=== PATIENT | male | born 1935 | race Caucasian/White ===

== ENCOUNTER → 2017-07-10 | Outpatient (CLI) | payer MEDICARE, BC ==
[~2017-07-10] MED LIST: ASPIR 8181 MG PO; ATIVAN0.5 MG PO; CENTRUM SILVER1 EAC4 PO; MELATONIN1 MG PO; OMEPRAZOLE 20 M20 M1 PO; PLAVIX 75 MG TA75 M1 PO; PRAVACHOL40 MG PO; SEROQUEL 50 MG50 MG PO
--- NOTE | 2017-07-10 14:51 | 2DMMODE ---
[place] [address] 2 D/M-MODE ECHOCARDIOGRAM Name: GIA STARKS Room: [facility]#: [id number] Admission: 07/10/17 Attend Phys: Bryan Stanley Discharge: Date of : 35 Date of Service: 07/10/17 1450 Report #: [id number] THIS REPORT FOR: //name// APPROVED REPORT Study performed: 07/10/2017 09:59:05 EXAM: Comprehensive 2D, Doppler, and color-flow Echocardiogram Patient Location: Out-Patient Status: routine BSA: 1.84 HR: 68 bpm BP: 115/66 mmHg Other Information Study Quality: Adequate Indications CAD 2D Dimensions IVSd: 10.12 (7-11mm) LVOT Diam: 20.37 (18-24mm) LVDd: 42.85 mm PWd: 9.61 (7-11mm) Ascending Ao: 28.47 (22-36mm) LVDs: 24.78 (25-40mm) Aortic Root: 23.82 mm Volumes Left Atrial Volume (Systole) LA ESV Index: 28.00 mL/m2 Aortic Valve AoV Peak Lex.: 1.69 m/s AO Peak Gr.: 11.46 mmHg LVOT Max P.19 mmHg AO Mean Gr.: 6.17 mmHg LVOT Mean P.00 mmHg LVOT Max V: 0.74 m/s AO V2 VTI: 30.30 cm LVOT Mean V: 0.45 m/s KIERAN (VTI): 1.79 cm2 LVOT V1 VTI: 16.68 cm Mitral Valve E/A Ratio: 0.72 MV Decel. Time: 277.64 ms MV E Max Lex.: 0.53 m/s MV PHT: 80.52 [place] [address] 2 D/M-MODE ECHOCARDIOGRAM Name: GIA STARKS Room: [facility]#: [id number] Admission: 07/10/17 Attend Phys: Bryan Stanley Discharge: Date of : 35 Date of Service: 07/10/17 1450 Report #: [id number] MVA (PHT): 2.73 cm2 TDI E/Lateral E': 6.63 E/Medial E': 7.57 Medial E' Lex.: 0.07 m/s Lateral E' Lex.: 0.08 m/s Pulmonary Valve PV Peak Lex.: 0.92 m/s PV Peak Gr.: 3.39 mmHg Tricuspid Valve TR Peak Gr.: 22.72 mmHg RVSP: 27.72 mmHg Left Ventricle The left ventricle is normal size. There is global hypokinesis of the left ventricle. There is normal left ventricular wall thickness. Left ventricular systolic function is mildly decreased. LVEF is 45-50%. Grade I - abnormal relaxation pattern. Right Ventricle The right ventricle is normal size. The right ventricular systolic function is normal. Atria The left atrium size is normal. The right atrium size is normal. Aortic Valve Aortic valve leaflets are mildly thickened. No aortic regurgitation is present. There is no aortic valvular stenosis. Mitral Valve The mitral valve is normal in structure. Mild mitral regurgitation. No evidence of mitral valve stenosis. Tricuspid Valve The tricuspid valve is normal in structure. Mild tricuspid regurgitation. The RVSP is _35___ mmHg. Pulmonic Valve Pulmonic valve is not well visualized. Mild pulmonic regurgitation. Great Vessels The aortic root is normal in size. IVC is normal in size and collapses with >50% [place] [address] 2 D/M-MODE ECHOCARDIOGRAM Name: GIA STARKS Room: [facility]#: [id number] Admission: 07/10/17 Attend Phys: Bryan Stanley Discharge: Date of : 35 Date of Service: 07/10/17 1450 Report #: [id number] Pericardium There is no pericardial effusion. <Conclusion> LVEF is 45-50%. Aortic valve leaflets are mildly thickened. Mild mitral regurgitation. There is global hypokinesis of the left ventricle. <ELECTRONICALLY SIGNED> By: Jose Sesay MD, FAC 07/10/17 145 145 145 Jose Sesay MD, FAC /INF
== END ==
LOC: M.CRD 09:12
DX: I08.1 Rheumatic disorders of both mitral and tricuspid valves (principal); I25.10 Atherosclerotic heart disease of native coronary artery without angina pectoris; I10 Essential (primary) hypertension

== ENCOUNTER 2017-12-21 17:07 | Inpatient (IN) | payer MEDICARE, BC ==
[~2017-12-21] VITALS: Ht 152.4 cm; Wt 75.7 kg
[2017-12-21 17:13] VITALS: BP 155/78
[2017-12-21] MEDS ORDERED: ASPIR 8181 MG PO (17:24)
[2017-12-21] MEDS ORDERED: ATIVAN0.5 MG PO (17:26)
[2017-12-21] MEDS ORDERED: CENTRUM SILVER1 EAC4 PO (17:26)
[2017-12-21] MEDS ORDERED: MELATONIN1 MG PO (17:26)
[2017-12-21] MEDS ORDERED: PRAVACHOL40 MG PO (17:27)
[2017-12-21] MEDS ORDERED: SEROQUEL 50 MG50 MG PO (17:27)
[2017-12-21] MEDS ORDERED: OMEPRAZOLE 20 M20 M1 PO (17:27)
[2017-12-21 17:31] LABS: ABSOLUTE BASOPHILS 0.1 thou/uL (0.0-0.2); ABSOLUTE LYMPHOCYTES 1.5 thou/uL (0.8-5.3); ABSOLUTE MONOCYTES 0.6 thou/uL (0.0-1.2); ABSOLUTE NEUTROPHILS 4.4 thou/uL (1.6-8.1); BASOPHILS 0.8 %; EOSINOPHILS 0.2 %; HEMATOCRIT 43.6 % (42.0-52.0); HEMOGLOBIN 14.8 gm/dL (14.0-18.0); LYMPHOCYTES 22.3 %; MCV 94.2 fL (80.0-100.0); MONOCYTES 9.3 %; MPV 8.7 fl. (7.2-11.1); NUCLEATED RBCS 0 /100WBC; PLATELET COUNT* 152 thou/uL (150-400); POLYS 67.4 %; RBC 4.63 mil/uL (4.50-6.00); RDW-CV 13.6 % (10.5-14.5); WBC 6.5 thou/uL (4.0-11.0)
[2017-12-21 17:41] LABS: ANION GAP 8 mmol/L (7-16); BUN 11 mg/dL (7-18); CALCIUM 8.2 mg/dL (8.5-10.1); CHLORIDE 102 mmol/L (98-107); CO2 26 mmol/L (21-32); GLUCOSE 114 mg/dL (70-99); POTASSIUM 3.9 mmol/L (3.5-5.1); SODIUM 136 mmol/L (136-145)
[2017-12-21 17:43] LABS: APTT 27.8 Seconds (25.0-31.3); INR 1.1; PROTIME 11.2 Seconds (9.20-11.50)
[2017-12-21 17:57] LABS: ALBUMIN 3.6 g/dL (3.4-5.0); ALKALINE PHOSPHATASE 95 U/L (46-116); CK-MB MASS 0.9 ng/mL (<0.5-3.6); LIPASE 95 U/L (73-393); MAGNESIUM 1.7 mg/dL (1.8-2.4); NT-PRO BRAIN NAT PEPTIDE 1241 pg/mL (<300); SGOT 28 U/L (15-37); SGPT 31 U/L (30-65); TOTAL PROTEIN 6.7 g/dL (6.4-8.2); TROPONIN-I LEVEL <0.06 ng/mL (<0.06)
[2017-12-21 19:00] VITALS: BP 123/62
[2017-12-21 19:06] VITALS: BP 137/75
[2017-12-21 20:00] VITALS: BP 123/62
[2017-12-22] VITALS (10 sets, daily range): BP systolic 105–123; BP diastolic 39–70
[2017-12-22 05:11] LABS: CHOLESTEROL 118 mg/dL (<200); HDL CHOLESTEROL 41 mg/dL (>40); LDL CHOLESTEROL 66 mg/dL (<100); TC:HDL 2.9 Ratio (Not establshd); TRIGLYCERIDE 56 mg/dL (<150); VLDL 11 mg/dL (<40)
[2017-12-22 05:21] LABS: SERUM ASSESSMENT CLEAR
--- NOTE | 2017-12-22 12:56 | EKG ---
[place] [address] ELECTROCARDIOGRAM REPORT Name: GIA STARKS Room: [address] ADM IN .R.#: [id number] Admission: 12/21/17 Attend Phys: Johnson Martins, Discharge: Date of : 35 Report #: [id number] THIS REPORT FOR: //name// [facility] Test Date: 2017-12-21 Test Time: 21:17:47 Pat Name: GIA STARKS Department: Room: [address] Gender: M [employer] Team Member: [facility] : 1935 Requested By: Amrit Cline Order Number: [id number] Reading MD: David Dejesus Measurements Intervals [place] Rate: 95 P: 50 [place]: 170 QRS: 36 QRSD: 103 T: 48 QT: 406 QTc: 511 Interpretive Statements Sinus rhythm Ventricular bigeminy Probable left atrial enlargement No previous ECG available for comparison Electronically Signed On 12-22-2017 12:56:12 CDT by David Dejesus [email or web address] <ELECTRONICALLY SIGNED> By: David Dejesus MD, [facility] 12/22/17 1256 16 16 David Dejesus MD, FAC /EPI
--- NOTE | 2017-12-22 12:56 | EKG ---
[place] [address] ELECTROCARDIOGRAM REPORT Name: GIA STARKS Room: [address] IN .R.#: [id number] Admission: 12/21/17 Attend Phys: Johnson Martins, Discharge: Date of : 35 Report #: [id number] THIS REPORT FOR: //name// [facility] ED Test Date: 2017-12-21 Test Time: 17:13:10 Pat Name: GIA STARKS Department: Room: [facility] Gender: M [employer]: Сергей MARY : 1935 Requested By: Amrit Cline Order Number: [id number] MD: David Dejesus Measurements Intervals [place] Rate: 90 P: 0 [place]: 135 QRS: 57 QRSD: 95 T: 68 QT: 396 QTc: 485 Interpretive Statements Sinus rhythm Ventricular bigeminy Borderline low voltage, extremity leads No previous ECG available for comparison Electronically Signed On 12-22-2017 12:56:05 CDT by David Dejesus [email or web address] <ELECTRONICALLY SIGNED> By: David Dejesus MD, [facility] 12/22/17 1256 171 12 David Dejesus MD, [facility] /EPI
[2017-12-23] VITALS (7 sets, daily range): BP systolic 91–122; BP diastolic 47–72
[2017-12-24] VITALS: BP 112/74
[2017-12-24 04:00] VITALS: BP 134/77
[2017-12-24 08:00] VITALS: BP 113/52; BP 122/60
[2017-12-24 08:12] VITALS: BP 122/60
[2017-12-24 10:08] VITALS: BP 122/60
[2017-12-24] MEDS ORDERED: PLAVIX 75 MG TA75 M1 PO (10:11)
--- NOTE | 2017-12-24 10:36 | 2DMMODE ---
[place] [address] 2 D/M-MODE ECHOCARDIOGRAM Name: GIA STARKS Room: [address] IN [facility]#: [id number] Admission: 12/21/17 Attend Phys: Johnson Bradshaw Discharge: Date of : 35 Date of Service: 12/23/17 1359 Report #: [id number] THIS REPORT FOR: //name// APPROVED REPORT Study performed: 12/23/2017 11:33:45 EXAM: Comprehensive 2D, Doppler, and color-flow Echocardiogram Patient Location: In-Patient Room #: [facility] Status: routine BSA: 1.88 HR: 52 bpm BP: 115/72 mmHg Rhythm: NSR Other Information Study Quality: Good Indications CVA/TIA Chest Pain Echo Enhancing Agent Indication: Rule out Shunt Agent(s) / Amount(s) Used: Agitated Saline 10 cc 2D Dimensions IVSd: 10.20 (7-11mm) LVOT Diam: 22.07 (18-24mm) LVDd: 44.24 mm PWd: 9.57 (7-11mm) Ascending Ao: 33.06 (22-36mm) LVDs: 30.69 (25-40mm) Aortic Root: 33.00 mm Volumes Left Atrial Volume (Systole) LA ESV Index: 30.20 mL/m2 Aortic Valve AoV Peak Lex.: 1.63 m/s AO Peak Gr.: 10.65 mmHg LVOT Max P.21 mmHg AO Mean Gr.: 6.44 mmHg LVOT Mean P.43 mmHg LVOT Max V: 0.90 m/s AO V2 VTI: 32.58 cm LVOT Mean V: 0.54 m/s KIERAN (VTI): 2.08 cm2 LVOT V1 VTI: 17.72 [place] [address] 2 D/M-MODE ECHOCARDIOGRAM Name: GIA STARKS Room: [address]#: [id number] Admission: 12/21/17 Attend Phys: Johnson Bradshaw Discharge: Date of : 35 Date of Service: 12/23/17 1359 Report #: [id number] Mitral Valve E/A Ratio: 0.58 MV Decel. Time: 205.12 ms MV E Max Lex.: 0.44 m/s MV PHT: 59.49 ms MVA (PHT): 3.70 cm2 TDI E/Lateral E': 3.14 E/Medial E': 4.00 Medial E' Lex.: 0.11 m/s Lateral E' Lex.: 0.14 m/s Pulmonary Valve PV Peak Lex.: 1.12 m/s PV Peak Gr.: 4.98 mmHg Tricuspid Valve RAP Estimate: 5.00 mmHg TR Peak Gr.: 23.03 mmHg RVSP: 28.00 mmHg PA Pressure: 28.00 mmHg Left Ventricle The left ventricle is normal size. severe hypokinesis of the apex There is normal left ventricular wall thickness. Left ventricular systolic function is mildly decreased. LVEF is 45-50%. Grade I - abnormal relaxation pattern. Right Ventricle The right ventricle is normal size. The right ventricular systolic function is normal. Atria Left atrium is mildly dilated. evidence of a small right to left interatrial shunt Right atrium is dilated. Aortic Valve Mild aortic valve sclerosis. No aortic regurgitation is present. There is no aortic valvular stenosis. Mitral Valve The mitral valve is normal in structure. Trace mitral regurgitation. No evidence of mitral valve stenosis. Tricuspid Valve The tricuspid valve is normal in structure. Mild tricuspid regurgitation. [place] [address] 2 D/M-MODE ECHOCARDIOGRAM Name: GIA STARKS Room: [address]#: [id number] Admission: 12/21/17 Attend Phys: Johnson Bradshaw Discharge: Date of : 35 Date of Service: 12/23/17 1359 Report #: [id number] Pulmonic Valve Pulmonic valve is not well visualized. Mild pulmonic regurgitation. Great Vessels The aortic root is normal in size. IVC is normal in size and collapses >50% with inspiration. Pericardium There is no pericardial effusion. <Conclusion> LVEF is 45-50%. Right atrium is dilated. evidence of a small right to left interatrial shunt severe hypokinesis of the apex Left atrium is mildly dilated. <ELECTRONICALLY SIGNED> By: Jose Sesay MD, [facility] 12/23/17 1359 1359 1359 Jose Sesay MD, FACC /INF
[2017-12-24 12:58] VITALS: BP 113/52
--- NOTE | 2018-01-04 12:28 | CON ---
[address] [address] CONSULTATION Name: GIA STARKS Room: [address] IN .R.#: [id number] Admission: 12/21/17 Attend Phys: Johnson Martins, Discharge: 12/24/17 Date of : 35 Report #: [id number] THIS REPORT FOR: //name// CC: [facility] physician/PCP Johnson Martins PRIMARY SOFTWARE BUSINESS ANALYST: Dr. Sly Ko. PRIMARY CARE PHYSICIAN: Dr. Jose Perez. REASON FOR CONSULTATION: Chest pain. HISTORY OF PRESENT ILLNESS: The patient is an 82-year-old man who presented to the Emergency Department with left-sided chest discomfort, but he also started to get numbness and weakness in his right arm, and ultimately underwent a CVA workup and was diagnosed with an acute CVA of the right posterior circulation. This morning, his speech is normal. He is alert and oriented. He is complaining a right arm is heavy, his hands are weak bilaterally and his left leg is having an itchy sensation or loss in sensation. His chest discomfort is central and left-sided. It was occurring at rest. It did not radiate. It was not associated with shortness of breath, diaphoresis, but he did not take aspirin or nitroglycerin, but is supposedly taking aspirin daily. He presents in a sinus rhythm with frequent PVCs and overnight on telemetry has remained in a sinus rhythm. PAST MEDICAL HISTORY: His cardiovascular past medical history is significant for the following: He had initial stent and PCI in the early 1999s and then mid 1999s. In approximately 2003 and 2004, he underwent multivessel coronary artery bypass surgery at [facility]. His most recent MPI was in 2016, which revealed a fixed anterior defect. He has a history of low normal ejection fraction in the 45-50% range. He has hypertension and hyperlipidemia. He is not diabetic. He has no prior history of CVA or TIA. He has no history of atrial fibrillation. HOME MEDICATIONS: Include baby aspirin, melatonin, lorazepam, omeprazole 20 mg daily, pravastatin 40 mg daily, and quetiapine 50 mg daily. ALLERGIES: He has no known drug allergies. SOCIAL HISTORY: He is a nonsmoker. REVIEW OF SYSTEMS: CARDIOVASCULAR: Denies palpitations or irregular [place] [address] CONSULTATION Name: GIA STARKS Room: [address]#: [id number] Admission: 12/21/17 Attend Phys: Johnson Martins, Discharge: 12/24/17 Date of : 35 Report #: [id number] breath, orthopnea or PND. Positive chest discomfort. RESPIRATORY: No cough. GENITOURINARY: No dysuria or hematuria. SKIN: No rashes. GENERAL: No fevers or chills. MUSCULOSKELETAL: No falls. NEUROLOGIC: No seizure disorder. PSYCHIATRIC: No depression or anxiety, some insomnia is noted. PHYSICAL EXAMINATION: VITAL SIGNS: Weight 78 kg, blood pressure is 150/70 and his pulse ox is 98% on 2 liters nasal cannula. He is in sinus rhythm with heart rate 78. GENERAL: Pleasant, alert and oriented, no apparent distress. NECK: Supple. No jugular venous distention. FACE: No facial asymmetry. EYES: EOMs intact. No facial asymmetry. NECK: Supple. No jugular venous distention. Upstrokes are normal. I cannot hear bruits. CARDIOVASCULAR: Regular. I cannot hear a murmur or rub. ABDOMEN: Nontender, nondistended. EXTREMITIES: No peripheral edema. SKIN: Warm and dry. PSYCHIATRIC: The patient has appropriate mood and affect. LABORATORY DATA: Electrocardiogram as noted above showed a sinus rhythm. His troponin I is 0.06 x 1 set. BNP is 1241. Potassium is 3.9, sodium is 136, BUN is 11, creatinine is 1.0. IMAGING: CTA of the brain demonstrated right posterior cerebral artery subacute infarction. No evidence of carotid stenosis. The right posterior cerebral artery remains patent. IMPRESSION: 1. Acute cerebrovascular accident as noted above. I would like to continue with telemetry to rule out atrial fibrillation. Our Neurology colleagues have been consulted. He was not a candidate apparently from the Emergency Room for tPA. 2. Coronary artery disease. He is asymptomatic for angina. 3. Coronary artery disease. He is having some chest pain, but at this point we would manage this conservatively. He is ruling out for an acute myocardial infarction. 4. Status post [place] [address] CONSULTATION Name: GIA STARKS Room: [address]#: [id number] Admission: 12/21/17 Attend Phys: Johnson Martins, Discharge: 12/24/17 Date of : 35 Report #: [id number] 5. History of mild left ventricular dysfunction. We will recheck an echocardiogram to reassess his left ventricular function. <ELECTRONICALLY SIGNED> By: David Dejesus MD, FACC 01/04/18 1228 1102 1404David Dejesus MD, FACC /nt
--- NOTE | 2018-01-20 12:29 | CON ---
[address] [address] CONSULTATION Name: GIA STARKS Room: [address] IN .R.#: [id number] Admission: 12/21/17 Attend Phys: Johnson Martins, Discharge: 12/24/17 Date of : 35 Report #: [id number] THIS REPORT FOR: //name// CC: [facility] physician/PCP Johnson Martins HISTORY OF PRESENT ILLNESS: The patient is an 82-year-old man who was admitted through the Emergency Department on 12/21/2017 when he came in with chest pain, worsening since the day before. He had actually been in his usual state of health until 3 days ago. He had gone on a several-day fishing trip with friends and he had come back "totally exhausted." At about 3:00 in the morning, his noticed that he had gotten up and was somewhat confused and was having somewhat of a problem with his balance. Subsequently, he noticed chest discomfort, diaphoresis, numbness and tingling in both arms. He states that these were the kinds of symptoms that he had before his previous heart attacks. He was seen in the Emergency Room. He was complaining of nausea, dizziness, equilibrium was off. He did have a NIH stroke scale, which was 0. He was not thought to be having a stroke, but more likely a cardiovascular event and the focus was on that; however, subsequently, he had a CAT scan of the head, which showed subacute changes of a right-sided posterior cerebral artery stroke with possible involvement of the right thalamus in addition to involvement of the right temporal lobe and right parietal lobe as well as some involvement of the occipital lobe. A further MRI scan today confirmed the subacute nature of the infarcts. In retrospect, his says that for some time, maybe several weeks, he had been complaining of not seeing things when he was driving out of his left visual field. On the left side of his vision, his would point out something that she had seen and he would say that he had not processed that information. He was doing well from a neurological point of view, however, and there was no concern about a stroke at that time. PAST MEDICAL HISTORY: Spelled out in the chart. He has had cataract surgery and has had a LASIK laser procedure of one eye. The patient does have risk factors of hypertension and hyperlipidemia, but not diabetes and he has had a coronary artery bypass graft surgery before. MEDICATIONS: He is taking aspirin. He has no history of atrial fibrillation. ALLERGIES: He has no drug allergies. SOCIAL HISTORY: He is a nonsmoker. REVIEW OF SYSTEMS: Negative for headaches. He has had no problems with dysarthria or dysphagia. He has not had any double vision. He has had some numbness and tingling in his hands and feet. Currently, he is complaining of some numbness in the left leg and he has some problems with coordination. He has never had a seizure. He does have insomnia. He is on Seroquel. He denies abdominal symptoms. He has no cough and he denies [place] [address] CONSULTATION Name: GIA STARKS Room[facility] [address] [id number] Admission: 12/21/17 Attend Phys: Johnson Martins, Discharge: 12/24/17 Date of : 35 Report #: [id number] PHYSICAL EXAMINATION: VITAL SIGNS: Blood pressure 108/70, pulse 67 and regular, temperature 36.4. GENERAL: The patient is an elderly man who is in no apparent distress and appears his stated age. He is pleasant and cooperative. NECK: Shows no limitations of movement. EXTREMITIES: No edema is noted. NEUROLOGIC: He is alert and oriented with normal memory. He missed 1 object out of 3 after 3 minutes, but he did calculations well. There was no evidence of anosognosia. On cranial nerve testing, the pupils were small, but equally round and reactive. Extraocular movements were full. 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 Facial sensation and movement were normal. Hearing was intact bilaterally. Tongue was normal. Motor testing revealed full power in his arms and legs. There was no pronator drift. On sensation testing, the patient had no difficulty identifying a number written on his hands. Light touch was equal throughout. Coordination testing was normal to [id number] and [id number]. Reflexes were diminished throughout. Toes were downgoing. His gait was wide based and somewhat ataxic. The MRI scan of the brain showed a subacute infarction involving the right medial temporal lobe and occipital lobe. There is a smaller infarct in the right thalamus. Cervical spine MRI showed multilevel cervical degenerative spondylosis. LABORATORY TESTS: Showed a normal CBC. IMPRESSION: Right posterior cerebral artery infarction, subacute, which did not produce symptoms that he came to the Emergency Room with. The patient does have risk factors for stroke including hypertension and hyperlipidemia as well as coronary artery disease. The CTA did not show obstructive lesions in the anterior or posterior circulations. The patient's most limiting abnormality is his hemianopia and I strongly advised him to not drive until he sees if the vision will recover. I would recommend he continue aspirin and because of his gait problem, would recommend physical therapy as well even though he does not have weakness. <ELECTRONICALLY SIGNED> By: Lambert Parrish MD 01/20/18 1229 1543 [id number] Parrish MD /nt
== END 2017-12-24 12:50 | disposition home or self-care (01) | DRG 64 ==
LOC: M.ERS 17:07 → M.2W 17:52 → M.TBA-ER 17:52 → M.2W 18:51
PROVIDERS: Family Medicine; ADMIT Family Medicine
DX: I63.431 Cerebral infarction due to embolism of right posterior cerebral artery (principal); I50.21 Acute systolic (congestive) heart failure; E78.00 Pure hypercholesterolemia, unspecified; K21.9 Gastro-esophageal reflux disease without esophagitis; I25.10 Atherosclerotic heart disease of native coronary artery without angina pectoris; I11.0 Hypertensive heart disease with heart failure; F32.9 Major depressive disorder, single episode, unspecified; E78.5 Hyperlipidemia, unspecified; Z79.899 Other long term (current) drug therapy; Z79.82 Long term (current) use of aspirin; Z95.5 Presence of coronary angioplasty implant and graft; Z82.49 Family history of ischemic heart disease and other diseases of the circulatory system; Z98.49 Cataract extraction status, unspecified eye; Z95.1 Presence of aortocoronary bypass graft

== ENCOUNTER → 2018-01-09 | Outpatient (CLI) | payer MEDICARE, BC | LOC: M.LAB 12:44 | PROVIDERS: Psychiatry & Neurology Neuromuscular Medicine | DX: I63.9 Cerebral infarction, unspecified (principal); F41.9 Anxiety disorder, unspecified; R53.83 Other fatigue ==

== ENCOUNTER → 2018-04-15 | Outpatient (CLI) | payer MEDICARE, BC ==
--- NOTE | 2018-04-15 16:10 | 2DMMODE ---
[place] [address] 2 D/M-MODE ECHOCARDIOGRAM Name: GIA STARKS Room: [facility]#: [id number] Admission: 04/15/18 Attend Phys: Bryan Stanley Discharge: Date of : 35 Date of Service: 04/15/18 1609 Report #: [id number] THIS REPORT FOR: //name// APPROVED REPORT Study performed: 04/15/2018 09:16:02 EXAM: Comprehensive 2D, Doppler, and color-flow Echocardiogram Patient Location: Out-Patient Status: routine BSA: 1.83 HR: 65 bpm BP: 115/72 mmHg Other Information Study Quality: Good Indications CAD 2D Dimensions IVSd: 11.19 (7-11mm) LVOT Diam: 20.15 (18-24mm) LVDd: 44.83 mm PWd: 10.22 (7-11mm) Ascending Ao: 28.79 (22-36mm) LVDs: 32.48 (25-40mm) Aortic Root: 30.31 mm Volumes Left Atrial Volume (Systole) LA ESV Index: 14.50 mL/m2 Aortic Valve AoV Peak Lex.: 1.43 m/s AO Peak Gr.: 8.14 mmHg LVOT Max P.42 mmHg AO Mean Gr.: 5.32 mmHg LVOT Mean P.10 mmHg LVOT Max V: 0.78 m/s AO V2 VTI: 27.93 cm LVOT Mean V: 0.48 m/s KIERAN (VTI): 1.87 cm2 LVOT V1 VTI: 16.41 cm Mitral Valve E/A Ratio: 0.70 MV Decel. Time: 389.53 ms MV E Max Lex.: 0.40 m/s MV PHT: 112.96 [place] [address] 2 D/M-MODE ECHOCARDIOGRAM Name: GIA STARKS Room: [facility]#: [id number] Admission: 04/15/18 Attend Phys: Bryan Stanley Discharge: Date of : 35 Date of Service: 04/15/18 1609 Report #: [id number] MVA (PHT): 1.95 cm2 TDI E/Lateral E': 4.00 E/Medial E': 5.00 Medial E' Lex.: 0.08 m/s Lateral E' Lex.: 0.10 m/s Pulmonary Valve PV Peak Lex.: 0.93 m/s PV Peak Gr.: 3.48 mmHg Tricuspid Valve RAP Estimate: 5.00 mmHg TR Peak Gr.: 17.34 mmHg RVSP: 22.34 mmHg PA Pressure: 22.34 mmHg Left Ventricle The left ventricle is normal size. There is normal LV segmental wall motion. There is normal left ventricular wall thickness. Left ventricular systolic function is mildly decreased. LVEF is 50%. Grade I - abnormal relaxation pattern. Right Ventricle The right ventricle is normal size. The right ventricular systolic function is normal. Atria The left atrium size is normal. Right atrium is mildly dilated. Aortic Valve Aortic valve is mildly calcified. No aortic regurgitation is present. There is no aortic valvular stenosis. Mitral Valve The mitral valve is normal in structure. There is no mitral valve regurgitation noted. No evidence of mitral valve stenosis. Tricuspid Valve The tricuspid valve is normal in structure. Mild tricuspid regurgitation. Pulmonic Valve The pulmonary valve is normal in structure. Mild pulmonic regurgitation[place] [address] 2 D/M-MODE ECHOCARDIOGRAM Name: GIA STARKS Room: [facility]#: [id number] Admission: 04/15/18 Attend Phys: Bryan Stanley Discharge: Date of : 35 Date of Service: 04/15/18 1609 Report #: [id number] The aortic root is normal in size. IVC is normal in size and collapses >50% with inspiration. Pericardium There is no pericardial effusion. <Conclusion> The left ventricle is normal size. There is normal left ventricular wall thickness. Left ventricular systolic function is mildly decreased. LVEF is 50%. Grade I - abnormal relaxation pattern. The right ventricle is normal size. The left atrium size is normal. Right atrium is mildly dilated. Aortic valve is mildly calcified. No aortic regurgitation is present. There is no aortic valvular stenosis. The mitral valve is normal in structure. The tricuspid valve is normal in structure. IVC is normal in size and collapses >50% with inspiration. There is no pericardial effusion. There is normal LV segmental wall motion. <ELECTRONICALLY SIGNED> By: Sly Ko MD, [facility] 04/15/18 1609 1609 1609 Sly Ko MD, FACC /INF
== END ==
LOC: M.CRD 09:00
DX: I25.10 Atherosclerotic heart disease of native coronary artery without angina pectoris (principal); I35.8 Other nonrheumatic aortic valve disorders; I10 Essential (primary) hypertension

== ENCOUNTER → 2019-05-06 | Outpatient (CLI) | payer MEDICARE, BC ==
--- NOTE | 2019-05-06 13:26 | 2DMMODE ---
[place] [address] 2 D/M-MODE ECHOCARDIOGRAM Name: GIA STARKS Room: [facility]#: [id number] Admission: 05/06/19 Attend Phys: Bryan Stanley Discharge: Date of : 35 Date of Service: 05/06/19 1325 Report #: [id number] THIS REPORT FOR: cc: Hero Bearden MD, Jason C. MD Blick, David R. MD [facility] ~ THIS REPORT FOR: //name// APPROVED REPORT Study performed: 05/06/2019 09:25:59 EXAM: Comprehensive 2D, Doppler, and color-flow Echocardiogram Patient Location: Out-Patient BSA: 1.81 HR: 72 bpm BP: 115/72 mmHg Other Information Study Quality: Good Indications CAD Hypertension/HDD 2D Dimensions IVSd: 10.51 (7-11mm) LVOT Diam: 20.43 (18-24mm) LVDd: 45.32 mm PWd: 9.54 (7-11mm) Ascending Ao: 30.56 (22-36mm) LVDs: 33.45 (25-40mm) Aortic Root: 29.45 mm Volumes Left Atrial Volume (Systole) LA ESV Index: 15.70 mL/m2 Aortic Valve AoV Peak Lex.: 1.63 m/s AO Peak Gr.: 10.65 mmHg LVOT Max P.92 mmHg AO Mean Gr.: 6.45 mmHg LVOT Mean P.92 mmHg LVOT Max V: 0.69 m/s AO V2 VTI: 32.10 cm LVOT Mean V: 0.44 m/s KIERAN (VTI): 1.45 cm2 LVOT V1 VTI: 14.19 [place] [address] 2 D/M-MODE ECHOCARDIOGRAM Name: GIA STARKS Room: [facility]#: [id number] Admission: 05/06/19 Attend Phys: Bryan Stanley Discharge: Date of : 35 Date of Service: 05/06/19 1325 Report #: [id number] Mitral Valve E/A Ratio: 0.56 MV Decel. Time: 383.31 ms MV E Max Lex.: 0.36 m/s MV PHT: 111.16 ms MVA (PHT): 1.98 cm2 TDI E/Lateral E': 4.00 E/Medial E': 4.00 Medial E' Lex.: 0.09 m/s Lateral E' Lex.: 0.09 m/s Pulmonary Valve PV Peak Lex.: 0.87 m/s PV Peak Gr.: 3.05 mmHg Tricuspid Valve RAP Estimate: 5.00 mmHg TR Peak Gr.: 20.45 mmHg RVSP: 25.45 mmHg PA Pressure: 25.45 mmHg Left Ventricle The left ventricle is normal size. There is normal LV segmental wall motion. There is normal left ventricular wall thickness. Left ventricular systolic function is normal. The left ventricular ejection fraction is within the normal range. LVEF is 50-55%. Grade I - abnormal relaxation pattern. Right Ventricle The right ventricle is normal size. The right ventricular systolic function is normal. Atria The left atrium size is normal. The right atrium size is normal. Aortic Valve Aortic valve is mildly calcified. No aortic regurgitation is present. There is no aortic valvular stenosis. Mitral Valve The mitral valve is normal in structure. There is no mitral valve regurgitation noted. No evidence of mitral valve stenosis. Tricuspid Valve The tricuspid valve is normal in structure[place] [address] 2 D/M-MODE ECHOCARDIOGRAM Name: STARKSGIA KELLE Room: [facility]#: [id number] Admission: 05/06/19 Attend Phys: Bryan Stanley Discharge: Date of : 35 Date of Service: 05/06/19 1325 Report #: [id number] regurgitation. estimated pa pressure 30 mm Hg Pulmonic Valve Pulmonic valve is not well visualized. Mild pulmonic regurgitation. Great Vessels The aortic root is normal in size. IVC is normal in size and collapses >50% with inspiration. Pericardium There is no pericardial effusion. <Conclusion> LVEF is 50-55%. Aortic valve is mildly calcified. <ELECTRONICALLY SIGNED> By: Jose Sesay MD, FACC 05/06/19 1325 1325 1325 Jose Sesay MD, FACC /INF
== END ==
LOC: M.CRD 08:42
DX: I08.8 Other rheumatic multiple valve diseases (principal); I25.10 Atherosclerotic heart disease of native coronary artery without angina pectoris; I10 Essential (primary) hypertension; Z95.1 Presence of aortocoronary bypass graft

== ENCOUNTER → 2020-11-14 | Outpatient (CLI) | payer MEDICARE, BC ==
--- NOTE | 2020-11-14 15:42 | 2DMMODE ---
[place] [address] 2 D/M-MODE ECHOCARDIOGRAM Name: GIA STARKS Room: [facility]#: [id number] Admission: 11/14/20 Attend Phys: Bryan Stanley Discharge: Date of : 35 Date of Service: 11/14/20 1542 Report #: [id number] THIS REPORT FOR: cc: Levi Cervantes Christopher DO Blick, David R. MD [facility] ~ APPROVED REPORT Study performed: 11/14/2020 10:38:22 EXAM: Comprehensive 2D, Doppler, and color-flow Echocardiogram Patient Location: Out-Patient BSA: 1.91 HR: 61 bpm BP: 122/76 mmHg Other Information Study Quality: Good Indications CAD 2D Dimensions IVSd: 9.26 (7-11mm) LVOT Diam: 20.22 (18-24mm) LVDd: 44.02 mm PWd: 9.64 (7-11mm) Ascending Ao: 29.02 (22-36mm) LVDs: 28.92 (25-40mm) Aortic Root: 32.97 mm Volumes Left Atrial Volume (Systole) LA ESV Index: 17.70 mL/m2 Aortic Valve AoV Peak Lex.: 1.45 m/s AO Peak Gr.: 8.46 mmHg LVOT Max P.58 mmHg AO Mean Gr.: 5.18 mmHg LVOT Mean P.12 mmHg LVOT Max V: 0.80 m/s AO V2 VTI: 28.83 cm LVOT Mean V: 0.47 m/s KIERAN (VTI): 1.86 cm2 LVOT V1 VTI: 16.68 cm Mitral Valve E/A Ratio: 0.68 [place] [address] 2 D/M-MODE ECHOCARDIOGRAM Name: GIA STARKS [id number] Admission: 11/14/20 Attend Phys: Bryan Stanley Discharge: Date of : 35 Date of Service: 11/14/20 1542 Report #: [id number] MV Decel. Time: 246.56 ms MV E Max Lex.: 0.46 m/s MV PHT: 71.50 ms MVA (PHT): 3.08 cm2 TDI E/Lateral E': 5.11 E/Medial E': 5.75 Medial E' Lex.: 0.08 m/s Lateral E' Lex.: 0.09 m/s Pulmonary Valve PV Peak Elx.: 0.99 m/s PV Peak Gr.: 3.94 mmHg Tricuspid Valve RAP Estimate: 5.00 mmHg TR Peak Gr.: 20.01 mmHg RVSP: 25.01 mmHg PA Pressure: 25.01 mmHg Left Ventricle The left ventricle is normal size. There is normal LV segmental wall motion. There is normal left ventricular wall thickness. Left ventricular systolic function is normal. The left ventricular ejection fraction is within the normal range. LVEF is 50-55%. Grade I - abnormal relaxation pattern. Right Ventricle The right ventricle is normal size. The right ventricular systolic function is normal. Atria The left atrium size is normal. The right atrium size is normal. Aortic Valve Mild aortic valve sclerosis. No aortic regurgitation is present. There is no aortic valvular stenosis. Mitral Valve The mitral valve is normal in structure. There is no mitral valve regurgitation noted. No evidence of mitral valve stenosis. Tricuspid Valve The tricuspid valve is normal in structure. Mild tricuspid regurgitation[place] [address] 2 D/M-MODE ECHOCARDIOGRAM Name: GIA STARKS Room: [facility]#: [id number] Admission: 11/14/20 Attend Phys: Bryan Stanley Discharge: Date of : 35 Date of Service: 11/14/20 1542 Report #: [id number] The pulmonary valve is normal in structure. Mild pulmonic regurgitation. Great Vessels The aortic root is normal in size. IVC is normal in size and collapses >50% with inspiration. Pericardium There is no pericardial effusion. <Conclusion> LVEF is 50-55%. Mild aortic valve sclerosis. <ELECTRONICALLY SIGNED> By: Jose Sesay MD, FACC 11/14/20 1542 [id number] Jose Sesay MD, FAC /INF
== END ==
LOC: M.CRD 10:52
PROVIDERS: ATTEND Internal Medicine
DX: I08.8 Other rheumatic multiple valve diseases (principal); I25.10 Atherosclerotic heart disease of native coronary artery without angina pectoris; I10 Essential (primary) hypertension; I25.5 Ischemic cardiomyopathy; R55 Syncope and collapse